=== PATIENT | male | born 1960 | race Caucasian/White ===

== ENCOUNTER 2018-03-25 10:23 | Outpatient (CLI) | payer BC ==
--- NOTE | 2018-03-25 14:38 | EKG ---
Test Reason : Blood Pressure : / mmHG Vent. Rate : 052 BPM Atrial Rate : 052 BPM P-R Int : 170 ms QRS Dur : 084 ms QT Int : 426 ms P-R-T Axes : 074 054 038 degrees QTc Int : 396 ms Sinus bradycardia Otherwise normal ECG No previous ECGs available Confirmed by DR. Doron GODINEZ ([id number]) on 03/25/2018 2:37:54 PM Referred By: GLEN Confirmed By:DR. Doron GODINEZ
== END 2018-03-25 10:24 | disposition home or self-care (01) ==
LOC: EKG 10:23
PROVIDERS: ATTEND Family Medicine
DX: R00.1 Bradycardia, unspecified (principal); I10 Essential (primary) hypertension
CPT/HCPCS: 93005; 93010